=== PATIENT | female | born 1975 | race Caucasian/White ===

== ENCOUNTER → 2019-07-05 | Outpatient (CLI) | payer OTHER | LOC: M.CT 17:00 | DX: K76.0 Fatty (change of) liver, not elsewhere classified (principal); K76.89 Other specified diseases of liver; N30.01 Acute cystitis with hematuria; Q79.0 Congenital diaphragmatic hernia; N28.1 Cyst of kidney, acquired ==

== ENCOUNTER → 2019-11-04 | Outpatient (CLI) | payer OTHER | LOC: M.RAD 07:00 | DX: Z12.31 Encounter for screening mammogram for malignant neoplasm of breast (principal) ==